=== PATIENT | female | born 1965 | race African-American/Black ===

== ENCOUNTER 2017-06-13 02:55 | Emergency (ER) | payer SELFPAY ==
[~2017-06-13] VITALS: Ht 165.1 cm; Wt 96.0 kg
[2017-06-13 05:45] VITALS: BP 97/48
== END 2017-06-13 06:16 | disposition home or self-care (01) ==
LOC: ER 02:55
DX: J40 Bronchitis, not specified as acute or chronic (principal); R03.0 Elevated blood-pressure reading, without diagnosis of hypertension
CPT/HCPCS: 71010; 99283; Z7610

== ENCOUNTER 2020-01-25 21:00 | Inpatient (IN) | payer MEDICARE, MEDICAID ==
[~2020-01-25] VITALS: Ht 165.1 cm; Wt 88.5 kg
[2020-01-25 21:29] LABS: BASOPHILS % 0.6 % (0.0-2.0); EOSINOPHILS % 1.3 % (0.0-5.0); HEMATOCRIT. 38.5 % (36.0-48.0); HEMOGLOBIN. 12.6 g/dL (12.0-16.0); LYMPHOCYTES % 27.6 % (20.0-50.0); MEAN CORPUSCULAR HEMOGLOBIN 25.8 pg (28.0-32.0); MEAN CORPUSCULAR VOLUME 79.2 fL (81.0-99.0); MEAN PLATELET VOLUME 8.3 fl (7.4-10.4); MONOCYTES % 6.4 % (2.0-8.0); NEUTROPHILS % 64.1 % (40.0-76.0); PLATELET 287 x1000/uL (130-400); RED BLOOD CELL COUNT 4.86 mill/uL (4.2-5.4); RED CELL DISTRIBUTION WIDTH 17.8 % (11.6-14.6)
[2020-01-25 21:36] LABS: CHLORIDE 105 mEq/L (98-107)
[2020-01-25 21:41] LABS: ETHANOL BLOOD < 10 mg/dL
[2020-01-25 21:44] LABS: LDL CHOLESTEROL 122 mg/dL (5-100)
[2020-01-25 21:45] LABS: PROTHROMBIN TIME 10.9 sec (9.6-11.0)
[2020-01-25] MEDS ORDERED: ASPIRIN 325MG TABLET PO ONE (21:45)
[2020-01-25] MEDS ORDERED: ONDANSETRON HCL 4MG/2ML INJ IV PRN (22:45)
[2020-01-25] MEDS ORDERED: HYDRALAZINE 20MG/ML VIAL IV PRN (22:45)
[2020-01-25] MEDS ORDERED: DOCUSATE SODIUM 100MG CAPSULE PO PRN (22:45)
[2020-01-25] MEDS ORDERED: GUAIFENESIN 200MG/10ML SUGAR FREE UDC PO PRN (22:45)
[2020-01-25] MEDS ORDERED: IPRATROPIUM/ALBUTEROL 0.5-3(2.5)MG/3ML NEB HHN PRN (22:45)
[2020-01-25] MEDS ORDERED: MAGNESIUM/ALUMINUM HYDROXIDE/SIMETHICONE 30ML UDC PO PRN (22:45)
[2020-01-25] MEDS ORDERED: ACETAMINOPHEN 325MG TABLET PO PRN (22:45)
[2020-01-25] MEDS ORDERED: CLONIDINE 0.1MG TABLET PO PRN (22:45)
[2020-01-25 23:45] LABS: CLARITY URINE CLEAR (CLEAR); COLOR URINE YELLOW (YELLOW); KETONES URINE NEGATIVE (NEGATIVE); LEUKOCYTE ESTERASE URINE TRACE (NEGATIVE); NITRITE URINE NEGATIVE (NEGATIVE); OCCULT BLOOD URINE 3+ (NEGATIVE); PH URINE 7.5 (4.5-8.0); PROTEIN URINE NEGATIVE (NEGATIVE); SPECIFIC GRAVITY URINE 1.009 (1.005-1.030)
[2020-01-25 23:53] LABS: *AMPHETAMINES SCREEN URINE NEGATIVE (NEGATIVE); *BARBITURATES SCREEN URINE NEGATIVE (NEGATIVE)
[2020-01-25 23:54] LABS: *BENZODIAZEPINES SCREEN URINE NEGATIVE (NEGATIVE); *COCAINE SCREEN URINE NEGATIVE (NEGATIVE); CANNABINOID URINE SCREEN NEGATIVE (NEGATIVE); METHADONE URINE SCREEN NEGATIVE (NEGATIVE); OPIATES URINE SCREEN PRESUMTIVE POSITIVE (NEGATIVE); PHENCYCLIDINE URINE SCREEN NEGATIVE (NEGATIVE)
[2020-01-26] VITALS: BP 113/80
[2020-01-26] MEDS: MORPHINE SULFATE 2 MG/ML CPJ (NOT FOR IM USE) IV PRN ×5 (00:47→21:12)
[2020-01-26] MEDS ORDERED: PROT40 PO (01:40)
[2020-01-26] MEDS ORDERED: ESCI20TA PO (01:40)
[2020-01-26] MEDS ORDERED: KEPP250 PO (01:40)
[2020-01-26] MEDS ORDERED: MONT4TAB9 MT (01:40)
[2020-01-26] MEDS ORDERED: LISI-648 PO (01:40)
[2020-01-26] MEDS ORDERED: ARIP30TA2 PO (01:40)
[2020-01-26] MEDS: DIPHENHYDRAMINE 50MG/ML VIAL IV PRN ×2 (02:05→08:20)
[2020-01-26 04:10] VITALS: BP 127/71
[2020-01-26] MEDS: SODIUM CHLORIDE 0.9% INJ 3ML FLUSH IVF SCH ×3 (05:15→21:14)
[2020-01-26 07:16] LABS: CHLORIDE 104 mEq/L (98-107)
[2020-01-26 07:25] LABS: CREATINE KINASE 85 IU/L (26-192)
[2020-01-26 07:27] LABS: CREATINE KINASE MB FRACTION < 1.0 ng/mL (0.5-3.6)
[2020-01-26 07:30] LABS: BASOPHILS % 0.6 % (0.0-2.0); EOSINOPHILS % 1.9 % (0.0-5.0); HEMATOCRIT. 35.3 % (36.0-48.0); HEMOGLOBIN. 11.7 g/dL (12.0-16.0); LYMPHOCYTES % 34.8 % (20.0-50.0); MEAN CORPUSCULAR HEMOGLOBIN 26.1 pg (28.0-32.0); MEAN CORPUSCULAR VOLUME 78.5 fL (81.0-99.0); MEAN PLATELET VOLUME 8.5 fl (7.4-10.4); MONOCYTES % 6.5 % (2.0-8.0); NEUTROPHILS % 56.2 % (40.0-76.0); PLATELET 281 x1000/uL (130-400); RED BLOOD CELL COUNT 4.49 mill/uL (4.2-5.4); RED CELL DISTRIBUTION WIDTH 17.8 % (11.6-14.6)
[2020-01-26 08:00] VITALS: BP 114/75
[2020-01-26] MEDS: ENOXAPARIN 30MG/0.3ML SYR SUBCUT SCH ×2 (08:16→21:12)
[2020-01-26] MEDS: ASPIRIN 81MG EC TABLET PO SCH (08:16)
[2020-01-26] MEDS ORDERED: POTASSIUM CHLORIDE 20MEQ TABLET SR PO NR (09:00)
[2020-01-26] MEDS: HYDROCODONE/ACETAMINOPHEN 10/325MG TABLET PO PRN ×2 (14:18→23:43)
[2020-01-26 16:50] LABS: CREATINE KINASE 91 IU/L (26-192)
[2020-01-26 16:51] LABS: T4 FREE 0.83 ng/dL (0.76-1.46)
[2020-01-26 16:52] LABS: CREATINE KINASE MB FRACTION < 1.0 ng/mL (0.5-3.6)
[2020-01-26] MEDS ORDERED: MEDICATION NOT ON FORMULARY EA (Escitalopram Oxalate (Lexapro) 20 MG) PO SCH (17:30)
[2020-01-26] MEDS: CITALOPRAM HYDROBROMIDE 10MG TABLET PO SCH (18:00)
[2020-01-26] MEDS: LEVETIRACETAM 250MG TABLET PO SCH (18:01)
[2020-01-26 20:00] VITALS: BP 125/57
[2020-01-26] MEDS: ATORVASTATIN CALCIUM 40MG TABLET PO SCH (21:12)
[2020-01-26] MEDS: ARIPIPRAZOLE 5MG TABLET PO SCH (21:12)
[2020-01-27 00:30] VITALS: BP 114/60
[2020-01-27] MEDS: MORPHINE SULFATE 2 MG/ML CPJ (NOT FOR IM USE) IV PRN ×5 (01:26→23:05)
[2020-01-27 04:55] VITALS: BP 104/54
[2020-01-27] MEDS: SODIUM CHLORIDE 0.9% INJ 3ML FLUSH IVF SCH ×3 (06:02→21:20)
[2020-01-27 06:31] LABS: BASOPHILS % 0.4 % (0.0-2.0); EOSINOPHILS % 1.8 % (0.0-5.0); HEMATOCRIT. 34.9 % (36.0-48.0); HEMOGLOBIN. 11.4 g/dL (12.0-16.0); LYMPHOCYTES % 40.4 % (20.0-50.0); MEAN CORPUSCULAR HEMOGLOBIN 25.8 pg (28.0-32.0); MEAN CORPUSCULAR VOLUME 78.8 fL (81.0-99.0); MEAN PLATELET VOLUME 8.3 fl (7.4-10.4); MONOCYTES % 6.3 % (2.0-8.0); NEUTROPHILS % 51.1 % (40.0-76.0); PLATELET 269 x1000/uL (130-400); RED BLOOD CELL COUNT 4.43 mill/uL (4.2-5.4); RED CELL DISTRIBUTION WIDTH 17.8 % (11.6-14.6)
[2020-01-27 06:47] LABS: CHLORIDE 106 mEq/L (98-107)
[2020-01-27] MEDS: HYDROCODONE/ACETAMINOPHEN 10/325MG TABLET PO PRN ×3 (06:51→21:28)
[2020-01-27 08:00] VITALS: BP 122/71
[2020-01-27] MEDS: CITALOPRAM HYDROBROMIDE 10MG TABLET PO SCH (08:56)
[2020-01-27] MEDS: ASPIRIN 81MG EC TABLET PO SCH (08:56)
[2020-01-27] MEDS: LEVETIRACETAM 250MG TABLET PO SCH ×2 (08:56→16:45)
[2020-01-27] MEDS: ENOXAPARIN 30MG/0.3ML SYR SUBCUT SCH (08:56)
[2020-01-27 12:00] VITALS: BP 124/79
[2020-01-27 16:00] VITALS: BP 122/63
[2020-01-27 20:30] VITALS: BP 124/71
[2020-01-27] MEDS: ATORVASTATIN CALCIUM 40MG TABLET PO SCH (21:05)
[2020-01-27] MEDS: ARIPIPRAZOLE 5MG TABLET PO SCH (21:05)
[2020-01-28 00:14] VITALS: BP 105/63
[2020-01-28] MEDS: HYDROCODONE/ACETAMINOPHEN 10/325MG TABLET PO PRN ×3 (03:00→20:23)
[2020-01-28 04:30] VITALS: BP 115/54
[2020-01-28] MEDS: MORPHINE SULFATE 2 MG/ML CPJ (NOT FOR IM USE) IV PRN ×5 (04:39→23:45)
[2020-01-28] MEDS: SODIUM CHLORIDE 0.9% INJ 3ML FLUSH IVF SCH ×3 (05:54→20:27)
[2020-01-28 08:00] VITALS: BP 105/60
[2020-01-28] MEDS: CITALOPRAM HYDROBROMIDE 10MG TABLET PO SCH (09:03)
[2020-01-28] MEDS: ASPIRIN 81MG EC TABLET PO SCH (09:03)
[2020-01-28] MEDS: ENOXAPARIN 40MG/0.4ML SYR SUBCUT SCH (09:03)
[2020-01-28] MEDS: LEVETIRACETAM 250MG TABLET PO SCH ×2 (09:03→17:34)
[2020-01-28 12:00] VITALS: BP 106/61
[2020-01-28 16:00] VITALS: BP 108/60
[2020-01-28 20:00] VITALS: BP 118/73
[2020-01-28] MEDS: ARIPIPRAZOLE 5MG TABLET PO SCH (20:01)
[2020-01-28] MEDS: ATORVASTATIN CALCIUM 40MG TABLET PO SCH (20:01)
[2020-01-28] MEDS: LORAZEPAM 2MG/ML CPJ IV PRN (20:24)
[2020-01-28] MEDS: DIPHENHYDRAMINE 50MG/ML VIAL IV PRN (21:02)
[2020-01-29] VITALS (9 sets, daily range): BP systolic 99–142; BP diastolic 57–90
[2020-01-29] MEDS: HYDROCODONE/ACETAMINOPHEN 10/325MG TABLET PO PRN ×3 (01:54→20:41)
[2020-01-29] MEDS: LORAZEPAM 2MG/ML CPJ IV PRN ×2 (01:54→10:43)
[2020-01-29] MEDS: CITALOPRAM HYDROBROMIDE 10MG TABLET PO SCH (08:43)
[2020-01-29] MEDS: LEVETIRACETAM 250MG TABLET PO SCH ×2 (08:43→17:51)
[2020-01-29] MEDS: ASPIRIN 81MG EC TABLET PO SCH (08:43)
[2020-01-29] MEDS: MORPHINE SULFATE 2 MG/ML CPJ (NOT FOR IM USE) IV PRN ×2 (08:44→14:12)
[2020-01-29] MEDS: ENOXAPARIN 40MG/0.4ML SYR SUBCUT SCH (08:45)
[2020-01-29] MEDS: DIPHENHYDRAMINE 50MG/ML VIAL IV PRN (11:38)
[2020-01-29] MEDS ORDERED: GADOBENATE DIMEGLUMINE 529 MG/ML 10ML IV ONE (11:46)
[2020-01-29] MEDS: SODIUM CHLORIDE 0.9% INJ 3ML FLUSH IVF SCH ×2 (14:00→22:00)
[2020-01-29] MEDS ORDERED: LORAZEPAM 1MG TABLET PO PRN (14:45)
[2020-01-29] MEDS: LORAZEPAM 1MG TABLET PO PRN (17:02)
[2020-01-29] MEDS: ATORVASTATIN CALCIUM 40MG TABLET PO SCH (20:40)
[2020-01-29] MEDS: ARIPIPRAZOLE 5MG TABLET PO SCH (20:44)
[2020-01-30] MEDS: HYDROCODONE/ACETAMINOPHEN 10/325MG TABLET PO PRN ×3 (02:14→17:26)
[2020-01-30] MEDS: LORAZEPAM 1MG TABLET PO PRN ×2 (04:52→15:44)
[2020-01-30] MEDS: SODIUM CHLORIDE 0.9% INJ 3ML FLUSH IVF SCH ×3 (05:13→21:35)
[2020-01-30 08:00] VITALS: BP 108/81
[2020-01-30] MEDS: ASPIRIN 81MG EC TABLET PO SCH (10:25)
[2020-01-30] MEDS: ENOXAPARIN 40MG/0.4ML SYR SUBCUT SCH (10:26)
[2020-01-30] MEDS: CITALOPRAM HYDROBROMIDE 10MG TABLET PO SCH (10:26)
[2020-01-30] MEDS: LEVETIRACETAM 250MG TABLET PO SCH ×2 (10:27→17:26)
[2020-01-30 12:00] VITALS: BP 136/77
[2020-01-30 16:00] VITALS: BP 127/83
[2020-01-30 20:00] VITALS: BP 117/63
[2020-01-30] MEDS: ARIPIPRAZOLE 5MG TABLET PO SCH (21:35)
[2020-01-30] MEDS: ATORVASTATIN CALCIUM 40MG TABLET PO SCH (21:35)
[2020-01-31] VITALS: BP 155/65
[2020-01-31] MEDS ORDERED: HYDROCODONE/ACETAMINOPHEN 10/325MG TABLET PO PRN (00:30)
[2020-01-31] MEDS: LORAZEPAM 1MG TABLET PO PRN (01:45)
[2020-01-31 04:00] VITALS: BP 103/64
[2020-01-31] MEDS: SODIUM CHLORIDE 0.9% INJ 3ML FLUSH IVF SCH (06:04)
[2020-01-31 08:00] VITALS: BP 108/59
[2020-01-31] MEDS: CITALOPRAM HYDROBROMIDE 10MG TABLET PO SCH (09:16)
[2020-01-31] MEDS: ENOXAPARIN 40MG/0.4ML SYR SUBCUT SCH (09:17)
[2020-01-31] MEDS: ASPIRIN 81MG EC TABLET PO SCH (09:21)
[2020-01-31 09:22] VITALS: BP 108/59
[2020-01-31] MEDS: LEVETIRACETAM 250MG TABLET PO SCH (09:35)
[2020-02-20] MEDS ORDERED: ASPI-986 MT (18:42)
[2020-02-20] MEDS ORDERED: ATOR10TA MT (18:42)
== END 2020-01-31 11:08 | disposition home or self-care (01) | DRG 948 ==
LOC: ER 21:00 → MICUSO 21:52 → EDBEDREQ 21:55 → EDBEDREQTM 21:55 → EDBEDREQSVC 21:55 → 6WST 22:54
PROVIDERS: ADMIT Internal Medicine; ATTEND Internal Medicine
DX: R53.1 Weakness (principal); I69.354 Hemiplegia and hemiparesis following cerebral infarction affecting left non-dominant side; G40.409 Other generalized epilepsy and epileptic syndromes, not intractable, without status epilepticus; M79.7 Fibromyalgia; G89.29 Other chronic pain; E78.5 Hyperlipidemia, unspecified; R29.810 Facial weakness; F17.210 Nicotine dependence, cigarettes, uncomplicated; I10 Essential (primary) hypertension; Z79.899 Other long term (current) drug therapy; I25.2 Old myocardial infarction; Z85.841 Personal history of malignant neoplasm of brain; Z92.3 Personal history of irradiation; Z76.5 Malingerer [conscious simulation]; Z88.8 Allergy status to other drugs, medicaments and biological substances; Z88.1 Allergy status to other antibiotic agents; Z91.041 Radiographic dye allergy status; Z90.49 Acquired absence of other specified parts of digestive tract; Z03.818 Encounter for observation for suspected exposure to other biological agents ruled out
CPT/HCPCS: 36415; 70551; 70552; 71045; 80048; 80053; 80061; 80305; 80320; 81003; 82550; 82553; 82962; 83036; 83721; 83880; 84439; 84443; 84484; 85025; 85379; 93005; 93306; 93970; 95816; 97116; 97162; 97166; 99291; A9577; J1200; J1650; J2060; J2270; G0480; U0003-CS

== ENCOUNTER 2020-02-19 19:15 | Inpatient (IN) | payer MEDICARE, MEDICAID ==
[~2020-02-19] VITALS: Ht 166.4 cm; Wt 88.0 kg
[~2020-02-19 19:15] MED LIST: ARIP30TA2 PO; ESCI20TA PO; KEPP250 PO; LISI-648 PO; MONT4TAB9 MT; PROT40 PO
[2020-02-19 20:46] LABS: BASOPHILS % 0.3 % (0.0-2.0); EOSINOPHILS % 2.9 % (0.0-5.0); HEMATOCRIT. 31.7 % (36.0-48.0); HEMOGLOBIN. 10.1 g/dL (12.0-16.0); LYMPHOCYTES % 35.9 % (20.0-50.0); MEAN CORPUSCULAR HEMOGLOBIN 25.3 pg (28.0-32.0); MEAN CORPUSCULAR VOLUME 79.8 fL (81.0-99.0); MEAN PLATELET VOLUME 7.8 fl (7.4-10.4); NEUTROPHILS % 53.9 % (40.0-76.0); PLATELET 296 x1000/uL (130-400); RED BLOOD CELL COUNT 3.97 mill/uL (4.2-5.4); RED CELL DISTRIBUTION WIDTH 16.7 % (11.6-14.6)
[2020-02-19 20:52] LABS: CHLORIDE 105 mEq/L (98-107)
[2020-02-19 20:54] LABS: INR 1.1; PROTHROMBIN TIME 11.4 sec (9.6-11.0)
[2020-02-19 20:56] LABS: ETHANOL BLOOD < 10 mg/dL
[2020-02-19 20:59] LABS: LDL CHOLESTEROL 99 mg/dL (5-100)
[2020-02-19 22:30] LABS: CLARITY URINE CLOUDY (CLEAR); COLOR URINE YELLOW (YELLOW); KETONES URINE NEGATIVE (NEGATIVE); LEUKOCYTE ESTERASE URINE 3+ (NEGATIVE); NITRITE URINE NEGATIVE (NEGATIVE); OCCULT BLOOD URINE 2+ (NEGATIVE); PROTEIN URINE NEGATIVE (NEGATIVE); SPECIFIC GRAVITY URINE 1.008 (1.005-1.030)
[2020-02-19 22:47] LABS: *AMPHETAMINES SCREEN URINE NEGATIVE (NEGATIVE); *BARBITURATES SCREEN URINE NEGATIVE (NEGATIVE); *BENZODIAZEPINES SCREEN URINE NEGATIVE (NEGATIVE)
[2020-02-19 22:48] LABS: *COCAINE SCREEN URINE NEGATIVE (NEGATIVE); CANNABINOID URINE SCREEN NEGATIVE (NEGATIVE); METHADONE URINE SCREEN NEGATIVE (NEGATIVE); OPIATES URINE SCREEN PRESUMTIVE POSITIVE (NEGATIVE); PHENCYCLIDINE URINE SCREEN NEGATIVE (NEGATIVE)
[2020-02-19 23:00] VITALS: BP 149/85
[2020-02-20] MEDS: HYDROCODONE/ACETAMINOPHEN 5/325MG TABLET PO PRN ×4 (01:33→21:49)
[2020-02-20] MEDS: MORPHINE SULFATE 2 MG/ML CPJ (NOT FOR IM USE) IV PRN ×3 (03:18→18:03)
[2020-02-20 04:00] VITALS: BP 110/67
[2020-02-20] MEDS: PANTOPRAZOLE 40MG DR TABLET PO SCH (06:01)
[2020-02-20 08:00] VITALS: BP 126/69
[2020-02-20] MEDS ORDERED: ASPIRIN 325MG EC TABLET PO SCH (09:00)
[2020-02-20] MEDS: ARIPIPRAZOLE 5MG TABLET PO SCH (10:34)
[2020-02-20] MEDS: CITALOPRAM HYDROBROMIDE 10MG TABLET PO SCH (10:37)
[2020-02-20] MEDS: HYDROCHLOROTHIAZIDE 12.5MG CAPSULE PO SCH (10:38)
[2020-02-20] MEDS: LEVETIRACETAM 250MG TABLET PO SCH ×2 (10:38→21:49)
[2020-02-20] MEDS: LISINOPRIL 20MG TABLET PO SCH (10:39)
[2020-02-20 12:00] VITALS: BP 119/74
[2020-02-20] MEDS: ENOXAPARIN 40MG/0.4ML SYR SUBCUT SCH (12:00)
[2020-02-20] MEDS ORDERED: GADOBENATE DIMEGLUMINE 529 MG/ML 10ML IV ONE ×2 (15:57→16:08)
[2020-02-20 16:00] VITALS: BP 143/71
[2020-02-20 16:08] LABS: BASOPHILS % 0.5 % (0.0-2.0); HEMATOCRIT. 34.6 % (36.0-48.0); LYMPHOCYTES % 27.3 % (20.0-50.0); MEAN CORPUSCULAR HEMOGLOBIN 25.1 pg (28.0-32.0); MEAN CORPUSCULAR VOLUME 78.8 fL (81.0-99.0); MEAN PLATELET VOLUME 8.1 fl (7.4-10.4); MONOCYTES % 7.2 % (2.0-8.0); PLATELET 314 x1000/uL (130-400); RED CELL DISTRIBUTION WIDTH 16.8 % (11.6-14.6)
[2020-02-20 16:13] LABS: CHLORIDE 107 mEq/L (98-107)
[2020-02-20 16:22] LABS: CREATINE KINASE MB FRACTION < 1.0 ng/mL (0.5-3.6)
[2020-02-20 16:23] LABS: LDL CHOLESTEROL 118 mg/dL (5-100)
[2020-02-20 16:24] LABS: CREATINE KINASE 154 IU/L (26-192); HDL CHOLESTEROL 47 mg/dL (40-59); T4 FREE 0.92 ng/dL (0.76-1.46)
[2020-02-20 16:26] LABS: CREATINE KINASE 155 IU/L (26-192)
[2020-02-20 16:27] LABS: CREATINE KINASE MB FRACTION < 1.0 ng/mL (0.5-3.6)
[2020-02-20] MEDS: MONTELUKAST SODIUM 10MG TABLET PO SCH (17:09)
[2020-02-20] MEDS ORDERED: ASPI-986 MT (18:42)
[2020-02-20] MEDS ORDERED: ATOR10TA MT (18:42)
[2020-02-20 20:00] VITALS: BP 121/65
[2020-02-21] VITALS: BP 125/68
[2020-02-21] MEDS: MORPHINE SULFATE 2 MG/ML CPJ (NOT FOR IM USE) IV PRN ×3 (01:40→18:17)
[2020-02-21] MEDS: DIPHENHYDRAMINE 50MG/ML VIAL IV PRN ×3 (01:40→21:42)
[2020-02-21] MEDS: HYDROCODONE/ACETAMINOPHEN 5/325MG TABLET PO PRN ×4 (03:53→21:42)
[2020-02-21 04:00] VITALS: BP 139/89
[2020-02-21] MEDS: PANTOPRAZOLE 40MG DR TABLET PO SCH (07:03)
[2020-02-21 07:43] VITALS: BP 127/58
[2020-02-21] MEDS: ASPIRIN 81MG TABLET PO SCH (09:00)
[2020-02-21] MEDS: ENOXAPARIN 40MG/0.4ML SYR SUBCUT SCH (10:31)
[2020-02-21] MEDS: ARIPIPRAZOLE 5MG TABLET PO SCH (10:32)
[2020-02-21] MEDS: CITALOPRAM HYDROBROMIDE 10MG TABLET PO SCH (10:34)
[2020-02-21] MEDS: LEVETIRACETAM 250MG TABLET PO SCH ×2 (10:35→21:42)
[2020-02-21] MEDS: HYDROCHLOROTHIAZIDE 12.5MG CAPSULE PO SCH (10:36)
[2020-02-21] MEDS: LISINOPRIL 20MG TABLET PO SCH (10:36)
[2020-02-21 11:55] VITALS: BP 104/59
[2020-02-21] MEDS: MONTELUKAST SODIUM 10MG TABLET PO SCH (18:17)
[2020-02-21 20:00] VITALS: BP 148/89
[2020-02-22] VITALS (7 sets, daily range): BP systolic 111–155; BP diastolic 56–93
[2020-02-22] MEDS: MORPHINE SULFATE 2 MG/ML CPJ (NOT FOR IM USE) IV PRN ×5 (00:05→20:50)
[2020-02-22] MEDS: DIPHENHYDRAMINE 50MG/ML VIAL IV PRN (04:04)
[2020-02-22] MEDS: HYDROCODONE/ACETAMINOPHEN 5/325MG TABLET PO PRN ×3 (04:05→22:50)
[2020-02-22] MEDS: PANTOPRAZOLE 40MG DR TABLET PO SCH (06:48)
[2020-02-22] MEDS: ARIPIPRAZOLE 5MG TABLET PO SCH (08:28)
[2020-02-22] MEDS: CITALOPRAM HYDROBROMIDE 10MG TABLET PO SCH (08:28)
[2020-02-22] MEDS: LISINOPRIL 20MG TABLET PO SCH ×2 (08:32→09:16)
[2020-02-22] MEDS: LEVETIRACETAM 250MG TABLET PO SCH ×2 (08:33→20:48)
[2020-02-22] MEDS: ASPIRIN 81MG TABLET PO SCH (08:33)
[2020-02-22] MEDS: ENOXAPARIN 40MG/0.4ML SYR SUBCUT SCH (08:36)
[2020-02-22] MEDS: HYDROCHLOROTHIAZIDE 12.5MG CAPSULE PO SCH (08:55)
[2020-02-22] MEDS: MONTELUKAST SODIUM 10MG TABLET PO SCH (16:37)
[2020-02-22] MEDS: ENOXAPARIN 30MG/0.3ML SYR SUBCUT SCH (20:49)
[2020-02-23] VITALS (7 sets, daily range): BP systolic 117–156; BP diastolic 59–92
[2020-02-23] MEDS: DIPHENHYDRAMINE 50MG/ML VIAL IV PRN ×3 (00:07→20:05)
[2020-02-23] MEDS: HYDROCODONE/ACETAMINOPHEN 5/325MG TABLET PO PRN ×2 (06:09→20:06)
[2020-02-23] MEDS: LISINOPRIL 20MG TABLET PO SCH (09:27)
[2020-02-23] MEDS: LEVETIRACETAM 250MG TABLET PO SCH ×2 (09:27→21:40)
[2020-02-23] MEDS: ASPIRIN 81MG TABLET PO SCH (09:27)
[2020-02-23] MEDS: HYDROCHLOROTHIAZIDE 12.5MG CAPSULE PO SCH (09:27)
[2020-02-23] MEDS: FAMOTIDINE 20MG TABLET PO SCH ×2 (09:28→20:06)
[2020-02-23] MEDS: ARIPIPRAZOLE 5MG TABLET PO SCH (09:28)
[2020-02-23] MEDS: CITALOPRAM HYDROBROMIDE 10MG TABLET PO SCH (09:31)
[2020-02-23] MEDS: ENOXAPARIN 30MG/0.3ML SYR SUBCUT SCH ×2 (09:31→20:05)
[2020-02-23] MEDS: MONTELUKAST SODIUM 10MG TABLET PO SCH (17:46)
[2020-02-24 00:24] VITALS: BP 119/63
[2020-02-24] MEDS: HYDROCODONE/ACETAMINOPHEN 5/325MG TABLET PO PRN ×4 (01:36→21:11)
[2020-02-24] MEDS: DIPHENHYDRAMINE 50MG/ML VIAL IV PRN ×2 (02:01→05:59)
[2020-02-24 04:00] VITALS: BP 126/69
[2020-02-24 08:00] VITALS: BP 124/70
[2020-02-24] MEDS: CITALOPRAM HYDROBROMIDE 10MG TABLET PO SCH (08:52)
[2020-02-24] MEDS: LEVETIRACETAM 250MG TABLET PO SCH ×2 (08:52→21:08)
[2020-02-24] MEDS: HYDROCHLOROTHIAZIDE 12.5MG CAPSULE PO SCH (08:52)
[2020-02-24] MEDS: ASPIRIN 81MG TABLET PO SCH (08:52)
[2020-02-24] MEDS: FAMOTIDINE 20MG TABLET PO SCH ×2 (08:53→21:08)
[2020-02-24] MEDS: LISINOPRIL 20MG TABLET PO SCH (08:53)
[2020-02-24] MEDS: ENOXAPARIN 30MG/0.3ML SYR SUBCUT SCH ×2 (08:54→21:12)
[2020-02-24] MEDS: ARIPIPRAZOLE 5MG TABLET PO SCH (11:33)
[2020-02-24 12:00] VITALS: BP 128/81
[2020-02-24 16:00] VITALS: BP 116/83
[2020-02-24] MEDS: MONTELUKAST SODIUM 10MG TABLET PO SCH (17:30)
[2020-02-24 20:00] VITALS: BP 137/81
[2020-02-25] VITALS: BP 80/60
[2020-02-25 04:00] VITALS: BP 126/78
[2020-02-25 08:00] VITALS: BP 133/78
[2020-02-25] MEDS: CITALOPRAM HYDROBROMIDE 10MG TABLET PO SCH (08:23)
[2020-02-25] MEDS: ARIPIPRAZOLE 5MG TABLET PO SCH (08:23)
[2020-02-25] MEDS: HYDROCHLOROTHIAZIDE 12.5MG CAPSULE PO SCH ×2 (08:24→08:37)
[2020-02-25] MEDS: ENOXAPARIN 30MG/0.3ML SYR SUBCUT SCH ×2 (08:24→08:37)
[2020-02-25] MEDS: ASPIRIN 81MG TABLET PO SCH (08:24)
[2020-02-25] MEDS: FAMOTIDINE 20MG TABLET PO SCH (08:25)
[2020-02-25] MEDS: LISINOPRIL 20MG TABLET PO SCH (08:25)
[2020-02-25] MEDS: LEVETIRACETAM 250MG TABLET PO SCH (08:25)
== END 2020-02-25 10:37 | disposition home or self-care (01) | DRG 69 ==
LOC: ER 19:15 → 8WST 21:22 → EDBEDREQSVC 21:33 → EDBEDREQTM 21:33 → EDBEDREQ 21:33 → ENRESERV 21:39
PROVIDERS: ADMIT Family Medicine; ATTEND Family Medicine
DX: G45.9 Transient cerebral ischemic attack, unspecified (principal); F31.9 Bipolar disorder, unspecified; E78.5 Hyperlipidemia, unspecified; E66.9 Obesity, unspecified; D63.8 Anemia in other chronic diseases classified elsewhere; I10 Essential (primary) hypertension; I25.10 Atherosclerotic heart disease of native coronary artery without angina pectoris; G51.0 Bell's palsy; M79.7 Fibromyalgia; F99 Mental disorder, not otherwise specified; G40.909 Epilepsy, unspecified, not intractable, without status epilepticus; R20.2 Paresthesia of skin; Z68.33 Body mass index [BMI] 33.0-33.9, adult; Z86.73 Personal history of transient ischemic attack (TIA), and cerebral infarction without residual deficits; Z88.0 Allergy status to penicillin; Z88.8 Allergy status to other drugs, medicaments and biological substances; Z91.041 Radiographic dye allergy status; Z79.899 Other long term (current) drug therapy; Z85.841 Personal history of malignant neoplasm of brain; Z85.048 Personal history of other malignant neoplasm of rectum, rectosigmoid junction, and anus; Z95.5 Presence of coronary angioplasty implant and graft; Z68.31 Body mass index [BMI] 31.0-31.9, adult; Z76.5 Malingerer [conscious simulation]; Z87.891 Personal history of nicotine dependence; Z03.818 Encounter for observation for suspected exposure to other biological agents ruled out
CPT/HCPCS: 36415; 70553; 71045; 80053; 80061; 80305; 80320; 81003; 82550; 82553; 82962; 83036; 83721; 83880; 84439; 84443; 84484; 85025; 85379; 87635; 93005; 93880; 96374; 97162; 97166; 97530; 97535; 99285; A9577; J1200; J1650; J2270; G0480

== ENCOUNTER 2022-09-18 00:52 | Inpatient (IN) | payer MEDICARE, MEDICAID ==
[~2022-09-18] VITALS: Ht 165.1 cm; Wt 94.8 kg
[~2022-09-18 00:52] MED LIST changes: +ASPI-986 MT; +ATOR10TA MT
[2022-09-18] MEDS ORDERED: ONDANSETRON 4MG ODT PO ONE (03:15)
[2022-09-18] MEDS ORDERED: FAMOTIDINE 20MG TABLET PO ONE (03:15)
[2022-09-18] MEDS ORDERED: MAGNESIUM/ALUMINUM HYDROXIDE/SIMETHICONE 30ML UDC PO ONE (03:15)
[2022-09-18 03:44] LABS: BASOPHILS % 0.2 % (0.0-2.0); EOSINOPHILS % 1.2 % (0.0-5.0); HEMATOCRIT. 35.4 % (36.0-48.0); HEMOGLOBIN. 11.2 g/dL (12.0-16.0); LYMPHOCYTES % 31.9 % (20.0-50.0); MEAN CORPUSCULAR HEMOGLOBIN 22.8 pg (28.0-32.0); MEAN CORPUSCULAR VOLUME 71.9 fL (81.0-99.0); MEAN PLATELET VOLUME 8.2 fl (7.4-10.4); MONOCYTES % 4.8 % (2.0-8.0); NEUTROPHILS % 61.9 % (40.0-76.0); PLATELET 334 x1000/uL (130-400); RED BLOOD CELL COUNT 4.92 mill/uL (4.2-5.4); RED CELL DISTRIBUTION WIDTH 17.7 % (11.6-14.6)
[2022-09-18 03:53] LABS: CHLORIDE 95 mEq/L (98-107)
[2022-09-18] MEDS ORDERED: ONDANSETRON HCL 4MG/2ML INJ IV STA (06:06)
[2022-09-18] MEDS ORDERED: MORPHINE SULFATE 4 MG/ML CPJ (NOT FOR IM USE) IV STA (06:06)
[2022-09-18] MEDS ORDERED: SODIUM CHLORIDE 0.9% 1,000 ML IV ONE (06:15)
[2022-09-18 09:30] VITALS: BP 125/80
[2022-09-18] MEDS ORDERED: GUAIFENESIN 200MG/10ML SUGAR FREE UDC PO PRN (10:15)
[2022-09-18] MEDS ORDERED: HYDROCODONE/ACETAMINOPHEN 5/325MG TABLET PO PRN (10:15)
[2022-09-18] MEDS ORDERED: IPRATROPIUM/ALBUTEROL 0.5-3(2.5)MG/3ML NEB HHN PRN (10:15)
[2022-09-18] MEDS ORDERED: MAGNESIUM/ALUMINUM HYDROXIDE/SIMETHICONE 30ML UDC PO PRN (10:15)
[2022-09-18] MEDS ORDERED: ACETAMINOPHEN 325MG TABLET PO PRN ×2 (10:15)
[2022-09-18] MEDS ORDERED: DOCUSATE SODIUM 100MG CAPSULE PO PRN (10:15)
[2022-09-18] MEDS ORDERED: CLONIDINE 0.1MG TABLET PO PRN (10:15)
[2022-09-18] MEDS ORDERED: ASPIRIN 325MG TABLET PO SCH (10:30)
[2022-09-18] MEDS ORDERED: DEXTROSE 50% WATER 50ML SYRINGE IV PRN (10:30)
[2022-09-18] MEDS ORDERED: INSULIN LISPRO 100 UNITS/ML SUBCUT NR (10:30)
[2022-09-18] MEDS ORDERED: PANTOPRAZOLE 40MG DR TABLET PO SCH (10:30)
[2022-09-18] MEDS ORDERED: ATORVASTATIN CALCIUM 10MG TABLET PO SCH (10:30)
[2022-09-18] MEDS ORDERED: IPRATROPIUM BROMIDE (0.02%) 0.5MG/2.5ML NEB HHN PRN (11:15)
[2022-09-18] MEDS ORDERED: ALBUTEROL (0.083%) 2.5MG/3ML NEB HHN PRN (11:15)
[2022-09-18] MEDS: LISINOPRIL 20MG TABLET PO SCH (11:30)
[2022-09-18] MEDS: HYDROCHLOROTHIAZIDE 12.5MG CAPSULE PO SCH (11:30)
[2022-09-18 12:00] VITALS: BP 93/56
[2022-09-18] MEDS: BLOOD SUGAR DIAGNOSTIC STRIP TEST SCH ×3 (13:04→21:00)
[2022-09-18] MEDS: ARIPIPRAZOLE 5MG TABLET PO SCH (13:04)
[2022-09-18] MEDS: INSULIN LISPRO 100 UNITS/ML SUBCUT SCH ×3 (13:09→21:00)
[2022-09-18] MEDS ORDERED: NALOXONE HCL 0.4MG/ML VIAL IV PRN (14:45)
[2022-09-18] MEDS ORDERED: ENOXAPARIN 40MG/0.4ML SYR SUBCUT SCH (15:00)
[2022-09-18] MEDS: MORPHINE SULFATE 2 MG/ML CPJ (NOT FOR IM USE) IV PRN ×2 (16:04→22:22)
[2022-09-18 16:58] VITALS: BP 125/47
[2022-09-18 17:46] LABS: CLARITY URINE CLOUDY (CLEAR); COLOR URINE YELLOW (YELLOW); KETONES URINE NEGATIVE (NEGATIVE); LEUKOCYTE ESTERASE URINE 2+ (NEGATIVE); NITRITE URINE NEGATIVE (NEGATIVE); OCCULT BLOOD URINE 2+ (NEGATIVE); PROTEIN URINE TRACE (NEGATIVE); SPECIFIC GRAVITY URINE 1.022 (1.005-1.030)
[2022-09-18 17:58] LABS: *AMPHETAMINES SCREEN URINE NEGATIVE (NEGATIVE); *BARBITURATES SCREEN URINE NEGATIVE (NEGATIVE); *BENZODIAZEPINES SCREEN URINE NEGATIVE (NEGATIVE); *COCAINE SCREEN URINE NEGATIVE (NEGATIVE); CANNABINOID URINE SCREEN NEGATIVE (NEGATIVE); METHADONE URINE SCREEN NEGATIVE (NEGATIVE); OPIATES URINE SCREEN PRESUMTIVE POSITIVE (NEGATIVE); PHENCYCLIDINE URINE SCREEN NEGATIVE (NEGATIVE)
[2022-09-18] MEDS ORDERED: CEFTRIAXONE 1 G PREMIX 50 ML IV SCH (18:45)
[2022-09-18 20:00] VITALS: BP 95/50
[2022-09-18 20:05] LABS: HEPATITIS B SURFACE ANTIGEN NEGATIVE
[2022-09-18] MEDS ORDERED: LEVETIRACETAM 250MG TABLET PO SCH (21:00)
[2022-09-18] MEDS: LEVETIRACETAM 250MG TABLET PO SCH (22:19)
[2022-09-18] MEDS: GABAPENTIN 300MG CAPSULE PO SCH (22:19)
[2022-09-18] MEDS: CEFTRIAXONE 1,000 MG in DEXTROSE 5% WATER 50 ML IV SCH (22:20)
[2022-09-19] VITALS: BP 120/54
[2022-09-19 04:00] VITALS: BP 103/52
[2022-09-19] MEDS: BLOOD SUGAR DIAGNOSTIC STRIP TEST SCH ×4 (07:28→20:57)
[2022-09-19 08:00] VITALS: BP 126/76
[2022-09-19] MEDS ORDERED: ACETAMINOPHEN 325MG TABLET PO PRN (08:27)
[2022-09-19] MEDS: INSULIN LISPRO 100 UNITS/ML SUBCUT SCH ×4 (08:31→20:59)
[2022-09-19] MEDS: PANTOPRAZOLE SODIUM 40 MG/VIAL IV SCH (08:48)
[2022-09-19] MEDS: ATORVASTATIN CALCIUM 10MG TABLET PO SCH (08:53)
[2022-09-19] MEDS: ARIPIPRAZOLE 5MG TABLET PO SCH (08:55)
[2022-09-19] MEDS: LEVETIRACETAM 250MG TABLET PO SCH ×2 (08:58→20:57)
[2022-09-19] MEDS: ASPIRIN 81MG TABLET PO SCH (08:59)
[2022-09-19] MEDS: HYDROCHLOROTHIAZIDE 12.5MG CAPSULE PO SCH (09:00)
[2022-09-19] MEDS: LISINOPRIL 20MG TABLET PO SCH (09:00)
[2022-09-19] MEDS: CITALOPRAM HYDROBROMIDE 10MG TABLET PO SCH (09:02)
[2022-09-19] MEDS: HYDROCODONE/ACETAMINOPHEN 5/325MG TABLET PO PRN ×3 (09:20→23:10)
[2022-09-19 12:00] VITALS: BP 122/87
[2022-09-19 15:20] LABS: BASOPHILS % 0.2 % (0.0-2.0); EOSINOPHILS % 1.2 % (0.0-5.0); HEMATOCRIT. 32.1 % (36.0-48.0); LYMPHOCYTES % 27.9 % (20.0-50.0); MEAN CORPUSCULAR HEMOGLOBIN 22.5 pg (28.0-32.0); MEAN CORPUSCULAR VOLUME 72.3 fL (81.0-99.0); MEAN PLATELET VOLUME 8.3 fl (7.4-10.4); MONOCYTES % 5.9 % (2.0-8.0); NEUTROPHILS % 64.8 % (40.0-76.0); PLATELET 307 x1000/uL (130-400); RED BLOOD CELL COUNT 4.44 mill/uL (4.2-5.4); RED CELL DISTRIBUTION WIDTH 17.7 % (11.6-14.6)
[2022-09-19 15:37] LABS: CHLORIDE 102 mEq/L (98-107)
[2022-09-19 15:56] LABS: HDL CHOLESTEROL 38 mg/dL (40-59); LDL CHOLESTEROL 65 mg/dL (5-100); T4 FREE 1.17 ng/dL (0.76-1.46); TOTAL IRON BINDING CAPACITY 350 ug/dL (250-450)
[2022-09-19 16:00] VITALS: BP 129/74
[2022-09-19 16:14] LABS: FOLIC ACID (FOLATE) SERUM 13.4 ng/mL (>5.38)
[2022-09-19] MEDS: ONDANSETRON HCL 4MG/2ML INJ IV PRN ×2 (16:23→23:09)
[2022-09-19 20:00] VITALS: BP 140/70
[2022-09-19] MEDS: CEFTRIAXONE 1,000 MG in DEXTROSE 5% WATER 50 ML IV SCH (20:57)
[2022-09-19] MEDS: GABAPENTIN 300MG CAPSULE PO SCH ×2 (20:57→21:00)
[2022-09-19] MEDS ORDERED: ENOXAPARIN 40MG/0.4ML SYR SUBCUT SCH (23:00)
[2022-09-20] VITALS: BP 121/83
[2022-09-20 04:00] VITALS: BP 161/64
[2022-09-20] MEDS: BLOOD SUGAR DIAGNOSTIC STRIP TEST SCH ×2 (06:54→12:40)
[2022-09-20 08:00] VITALS: BP 117/44
[2022-09-20] MEDS: PANTOPRAZOLE SODIUM 40 MG/VIAL IV SCH (08:37)
[2022-09-20] MEDS: CITALOPRAM HYDROBROMIDE 10MG TABLET PO SCH (08:38)
[2022-09-20] MEDS: ARIPIPRAZOLE 5MG TABLET PO SCH (08:38)
[2022-09-20] MEDS: ASPIRIN 81MG TABLET PO SCH (08:39)
[2022-09-20] MEDS: ATORVASTATIN CALCIUM 10MG TABLET PO SCH (08:39)
[2022-09-20] MEDS: HYDROCHLOROTHIAZIDE 12.5MG CAPSULE PO SCH (08:39)
[2022-09-20] MEDS: LEVETIRACETAM 250MG TABLET PO SCH (08:39)
[2022-09-20] MEDS: LISINOPRIL 20MG TABLET PO SCH (08:40)
[2022-09-20] MEDS ORDERED: IRON SUCROSE COMPLEX 100 MG/5 ML ML IV SCH (08:45)
[2022-09-20] MEDS: INSULIN LISPRO 100 UNITS/ML SUBCUT SCH ×2 (09:02→12:49)
[2022-09-20] MEDS: HYDROCODONE/ACETAMINOPHEN 5/325MG TABLET PO PRN (11:10)
[2022-09-20 12:00] VITALS: BP 111/47
[2022-09-20] MEDS ORDERED: DIPHENHYDRAMINE 12.5MG/5ML UDC PO NR (12:30)
[2022-09-20] MEDS ORDERED: CITA10TA16 PO ×3 (13:52→15:53)
[2022-09-20] MEDS ORDERED: GLIM2TAB30 PO ×2 (13:52→15:53)
[2022-09-20] MEDS ORDERED: ONDA4TAB50 PO (13:52)
[2022-09-20] MEDS ORDERED: KEPP250 PO (13:52)
[2022-09-20] MEDS ORDERED: PANT20TA17 PO ×2 (13:52→15:53)
[2022-09-20] MEDS ORDERED: ATOR10TA PO ×2 (13:52→15:53)
[2022-09-20] MEDS ORDERED: METF500C PO (13:52)
[2022-09-20] MEDS ORDERED: LISI20TA31 PO ×2 (13:52→15:53)
[2022-09-20] MEDS ORDERED: ABIL5 PO ×2 (13:52→15:53)
[2022-09-20] MEDS ORDERED: ASPI-1160 PO ×2 (13:52→15:53)
[2022-09-20] MEDS ORDERED: FERR-63 PO ×2 (13:52→15:53)
[2022-09-20] MEDS ORDERED: HYDR12.54 PO ×2 (13:55→15:53)
[2022-09-20 15:41] VITALS: BP 126/64
[2022-09-20 15:42] LABS: CHLORIDE 102 mEq/L (98-107)
[2022-09-20] MEDS ORDERED: METF-414 PO (15:53)
[2022-09-20] MEDS ORDERED: LEVE750T4 PO (15:53)
[2022-09-20] MEDS ORDERED: ONDA4TAB11 SL (15:53)
[2022-09-20] MEDS ORDERED: DULO60CA64 PO (16:00)
[2022-09-20] MEDS ORDERED: ENOXAPARIN 30MG/0.3ML SYR SUBCUT SCH (18:00)
[2022-09-21] MEDS ORDERED: FERROUS SULFATE 325MG TABLET PO SCH (09:00)
== END 2022-09-20 16:18 | disposition home or self-care (01) | DRG 74 ==
LOC: ER 00:52 → 6EST 07:58 → EDBEDREQTM 08:07 → EDBEDREQ 08:07 → SUPCPDRO 08:31 → ENRESERV 08:44
PROVIDERS: ADMIT Internal Medicine; ATTEND Internal Medicine
DX: E11.43 Type 2 diabetes mellitus with diabetic autonomic (poly)neuropathy (principal); N39.0 Urinary tract infection, site not specified; C71.9 Malignant neoplasm of brain, unspecified; K31.84 Gastroparesis; D25.9 Leiomyoma of uterus, unspecified; E11.65 Type 2 diabetes mellitus with hyperglycemia; F41.9 Anxiety disorder, unspecified; F31.9 Bipolar disorder, unspecified; K76.0 Fatty (change of) liver, not elsewhere classified; K59.00 Constipation, unspecified; J44.9 Chronic obstructive pulmonary disease, unspecified; I10 Essential (primary) hypertension; G40.909 Epilepsy, unspecified, not intractable, without status epilepticus; F45.21 Hypochondriasis; F17.210 Nicotine dependence, cigarettes, uncomplicated; E78.5 Hyperlipidemia, unspecified; D50.9 Iron deficiency anemia, unspecified; Z85.038 Personal history of other malignant neoplasm of large intestine; Z91.51 Personal history of suicidal behavior; Z90.49 Acquired absence of other specified parts of digestive tract; Z79.899 Other long term (current) drug therapy; Z79.4 Long term (current) use of insulin; Z91.041 Radiographic dye allergy status; Z88.0 Allergy status to penicillin
CPT/HCPCS: 36415; 70551; 74176; 80048; 80053; 80061; 80305; 81003; 82105; 82378; 82607; 82728; 82746; 82962; 83036; 83540; 83550; 84439; 84443; 84481; 84484; 85025; 85044; 86803; 87340; 93005; 99285; C9113; J0696; J1650; J1815; J2270; J2405; J7030; J7060; Q0162; Q0163